=== PATIENT | female | born 1965 | race Caucasian/White ===

== ENCOUNTER 2024-02-02 08:22 | Inpatient (IN) | payer OTHER, SELFPAY ==
[2024-02-01 11:04] VITALS: BP 114/92
[2024-02-01 11:25] LABS: % Basophils 0.4 % (0-2); % Eosinophils 1.8 % (0-6); % Immature Granulocytes 0.3 % (0-0.5); % Lymphocytes 9.1 % (20.5-51.1); % Monocytes 5.2 % (1.7-9.3); % Neutrophils 83.2 % (42.2-75.2); Absolute Eosinophils 0.2 10^3/uL (0-0.7); Absolute Monocytes 0.5 10^3/uL (0.1-0.6); Absolute Neutrophils 8.6 10^3/uL (1.4-6.5); Hematocrit 35.8 % (37.0-47.0); Hemoglobin 12.4 g/dL (12.0-16.0); Mean Corp Hgb Conc. 34.6 g/dL (33.0-37.0); Mean Corpuscular Hgb 28.6 pg (27.0-31.0); Mean Corpuscular Volume 82.5 fL (81.0-99.0); Mean Platelet Volume 9.2 fL (7.4-10.4); Nucleated Red Blood Cells % 0 %; Platelet Count 184 10^3/uL (130-400); Red Blood Cell Count 4.34 10^6/uL (4.20-5.40); Red Cell Dist. Width 12.1 % (11.5-14.5); White Blood Cell Count 10.4 10^3/uL (4.8-10.8)
[2024-02-01 11:41] LABS: Lactic Acid 0.7 mmol/L (0.7-2.0)
[2024-02-01 11:49] LABS: ALT (SGPT) 46 U/L (0-35); AST (SGOT) 52 U/L (14-36); Albumin 4.1 g/dl (3.5-5.0); Alkaline Phosphatase 72 U/L (38-126); Blood Urea Nitrogen 9 mg/dl (7-17); Calcium 9.2 mg/dl (8.4-10.2); Carbon Dioxide 23 mmol/L (22-30); Chloride 96 mmol/L (98-107); Glucose 66 mg/dl (70-99); Lipase 1587 U/L (23-300); Potassium 3.9 mmol/L (3.5-5.1); Sodium 129 mmol/L (135-145); Total Bilirubin 0.3 mg/dl (0.2-1.3); Total Protein 6.9 g/dl (6.3-8.2); eGFR > 60.00
[2024-02-01 13:32] LABS: Urine Albumin Negative (Neg - Trace); Urine Bilirubin Negative (Negative); Urine Character Clear (Clear); Urine Color Yellow; Urine Glucose Negative (Negative); Urine Ketone 3+ (Negative); Urine Leukocyte Trace (Negative); Urine Nitrite Negative (Negative); Urine Occult Blood Trace (Negative); Urine Urobilinogen Negative (Neg - 1+); Urine pH 6.5 (5.0-9.0)
[2024-02-01 13:42] LABS: Urine Squamous Cell 0-2 /LPF (Few)
--- NOTE | 2024-02-01 14:12 | ED.GENMED ---
History of Present Illness
General
Chief Complaint: Abdominal Symptoms
Source: patient and spouse
Exam Limitations: none
Time Seen by Provider: 02/01/24 13:52
Nursing documentation reviewed up to this point in time: agreed with
Travel History
Have you had any contact with someone who has COVID-19?: No
Do you have any symptoms of coronavirus? Fever > 100 degrees, chills, cough, shortness of breath, sore throat, loss of taste or smell, muscle aches, or headache?: No
History of Present Illness
History of Present Illness:
58 yo female presents with abdominal bloating pain, low back pain, fever, past 2 days. Had 'debilitating headache' 2 days ago and this has resolved after taking a friend's Ubrelvy. She's had difficulty urinating 'only trickles,' no dysuria. Fever
max 101.7 yesterday.
Went to UC 2 days ago and told she had UTI and given Cipro, took one dose and stopped after reading poss side effects. Got final urine culture results today that were negative.
Had no good BM since breast surgery on 01/20 but finally had good BM yesterday
Hx breast CA finished chemo 2013, had rupture breast implant removed and replaced 11 days ago at [facility]. Finished 10 days of Bactrim yesterday.
Past History
Past History
ED Past Medical History: Cancer (breast CA) and Other (Sjogren's syndrome, Rheumatoid arthritis)
ED Past Surgical History: and Gynecological (bilateral mastectomies, bilateral breast implants, left breast implant rupture with replacement on 01/21/24)
Social History
Tobacco: Non-smoker
Alcohol: None
Personal:
Living: with family
Review of Systems
Review of Systems
Allergies reviewed?: Yes
All Other Systems: ROS reviewed and negative except as documented in HPI and ROS
Constitutional: Reports fever
Respiratory: Denies trouble breathing
Cardiac: Denies chest pain
ABD/GI: Reports abdominal pain, constipated and anorexia; Denies nausea, vomiting, diarrhea, bloody stools or black stools
: Reports frequency and difficulty voiding; Denies dysuria or urgency
Musculoskeletal: Reports back pain (w back pain)
Skin: Reports no symptoms
Neurological: Reports no symptoms
Phy Exam
Physical Exam
Physical Exam:
GENERAL: No acute distress. A&Ox3.
CONSTITUTIONAL: Afebrile.
EYES: PERRL, conjunctivae normal
Neck: Supple
ENMT: moist mucus membranes, Pharynx nl
RESPIRATORY: Regular respirations, nonlabored, lungs clear.
CARDIOVASCULAR: Regular rate and rhythm, no murmurs, no rubs.
GI: Soft, generally mildly tender, no guarding or rebound, normal BS
MUSCULOSKELETAL: Moves with ease. Well perfused.
SKIN: Warm, dry, pink
PSYCH: Normal mood and affect. Well kept, interactive and appropriate
NEUROLOGIC: Awake, alert and oriented. No focal neurological deficits
Course
Orders/Labs/Results
Orders:
Orders
02/01/24 11:16
Complete Blood Count/With Diff Urgent
Comprehensive Metabolic Panel Urgent
Lactic Acid Urgent
Comment: ON ICE, CANCEL 2ND ORDER IF FIRST LACTIC ACID LEVEL <2
Lipase Urgent
02/01/24 13:19
Urinalysis Reflex To Culture Urgent
Date Specimen was Collected: 02/01/24
Time Specimen was Collected: 13:15
Urine Microscopic Reflex Cult Urgent
02/01/24 14:12
CT Abd/pel W Iv And Oral Contr Urgent
Comment:
Reason For Exam: bleating, pain, elevated Lipase
Iohexol [Omnipaque] See Protocol PO NOW STA
02/01/24 14:53
0.9% Sodium Chloride 1000 ml [Nss] 1,000 ml IV BOLUS
02/01/24 18:07
Ketorolac [Toradol] 15 mg .ROUTE .STK-MED ONE
02/01/24 18:09
Ketorolac [Toradol] 15 mg IV NOW STA
Abnormal Lab Results
02/01/24 02/01/24
11:16 13:19
Hct 35.8 L %
(37.0-47.0)
Absolute Neuts (auto) 8.6 H 10^3/uL
(1.4-6.5)
Absolute Lymphs (auto) 1.0 L 10^3/uL
(1.2-3.4)
Neutrophils % 83.2 H %
(42.2-75.2)
Lymphocytes % 9.1 L %
(20.5-51.1)
Sodium 129 L mmol/L
(135-145)
Chloride 96 L mmol/L
(98-107)
Creatinine 0.5 L mg/dL
(0.6-1.0)
Glucose 66 L mg/dl
(70-99)
AST 52 H U/L
(14-36)
ALT 46 H U/L
(0-35)
Lipase 1587 H* U/L
(23-300)
Urine Ketones 3+ A
(Negative)
Ur Occult Blood Reflex Trace A
(Negative)
Leukocyte Esterase Rfl Trace A
(Negative)
Urine RBC 3-6 A /HPF
(0-2)
02/01/24 11:16
02/01/24 11:16
Vital Signs
Initial and Last Documented VS:
Initial Vital Signs
Temp Pulse Resp BP Pulse Ox
97.7 F 94 18 114/92 99
02/01/24 11:04 02/01/24 11:04 02/01/24 11:04 02/01/24 11:04 02/01/24 11:04
Last Documented Vital Signs
Temp Pulse Resp BP Pulse Ox
98.6 F 106 17 132/73 95
02/01/24 18:02 02/01/24 18:02 02/01/24 14:48 02/01/24 18:02 02/01/24 18:02
MDM/Problems Addressed
Differential Diagnosis Includes:
Cholelithiasis, choledocholithiasis, pancreatitis, metastatic CA
MDM/Problems Addressed:
58 yo female presents with abdominal bloating pain, low back pain, fever, past 2 days. Had 'debilitating headache' 2 days ago and this has resolved after taking a friend's Ubrelvy. She's had difficulty urinating 'only trickles,' no dysuria. Fever
max 101.7 yesterday.
Went to UC 2 days ago and told she had UTI and given Cipro, took one dose and stopped after reading poss side effects. Got final urine culture results today that were negative.
Had no good BM since breast surgery on 01/20 but finally had good BM yesterday
Hx breast CA finished chemo 2013, had rupture breast implant removed and replaced 11 days ago at [facility]. Finished 10 days of Bactrim yesterday.
3:10 PM
CBC: Normal
CMP: Sodium 129, mild elevation AST/ALT, lipase elevated at 1587.
UA: No sign of infection
6:[address] abdomen pelvis with p.o. and IV contrast radiology report read:
IMPRESSION:
1. Probable under distention of a short segment of terminal ileum, versus mild focal terminal ileitis.
2. Otherwise no significant acute abnormality identified in the abdomen or pelvis, as described above.
Plan: Admit: Pancreatitis, possible mild terminal ileitis
Hospitalist notified of admission
Chronic conditions affecting care: Cancer
*Critical Care Note
Total Time (30-74mins, 75-104mins- exclusive of procedures): Not Applicable
ED Attending Note
-
Portions of this chart may have been created with voice recognition software.� Occasional wrong word or��sound alike� substitutions may have occurred due to the inherent limitations of voice recognition software.
Discharge Plan
Departure
Patient Disposition: Admit
Date of Disposition: 02/01/24
Time of Disposition: 18:49
Admit to: Med/Surg
Presentation/result/management discussed w/ accepting MD/DO: Hospitalist
Condition: Good
Discharge Problem:
Acute pancreatitis
Prescriptions:
No Action
acetaminophen [Tylenol] 325 mg Tablet
650 mg PO Q6HPRN PRN (Reason: mild pain)
alendronate [Fosamax] 70 mg Tablet
70 mg PO WINTER
calcium carbonate [Calcium 500] 500 mg calcium (1,250 mg) Tablet
500 mg PO DAILY
diazepam [Valium] 2 mg Tablet
2 mg PO DAILYPRN PRN (Reason: anxiety)
docusate sodium [Colace] 100 mg Capsule
100 mg PO BIDPRN PRN (Reason: constipation from surgery)
hydroxychloroquine [Plaquenil] 200 mg Tablet
200 mg PO WESA
zolpidem [Ambien] 10 mg Tablet
10 mg PO HSPRN PRN (Reason: sleep)
oxycodone 5 mg Tablet
5 mg PO BIDPRN PRN (Reason: severe pain)
Referrals:
Chau Hall DO [Family Provider] -
Interventions
Interventions:
*Risk Screen - Suicide Last Done: 02/01/24 11:04
*General Assessment Last Done: 02/01/24 11:04
*Neglect/Abuse Screening Last Done: 02/01/24 11:04
*ED COVID-19 Vaccine History Last Done: 02/01/24 14:50
IW-Lxuzne-Kirugvwrvw Assessment Last Done: 02/01/24 16:50
Discharge Date and Time
Print Language: GHANAIAN
[2024-02-01] MEDS: OMNIPAQUE 50 ML PO (14:30)
[2024-02-01 14:48] VITALS: BP 123/86; BMI 18.2
[2024-02-01] MEDS: NSS 1000 IV (16:05)
[2024-02-01 16:06] VITALS: BP 125/80
[2024-02-01 18:02] VITALS: BP 132/73
[2024-02-01 18:04] VITALS: BP 132/73
[2024-02-01] MEDS: TORADOL 15 MG IV (18:09)
--- NOTE | 2024-02-01 19:00 | HPS.HSE ---
Family Physician
-
Family Physician: Chau Hall
Chief Complaint
-
Abdominal pain, fever at home
History of Present Illness
HPI: 58 yo female PMH breast Ca s/p bilateral mastectomies, bilateral breast implants, left breast implant rupture with recent replacement on 01/21/24, Sjogren's syndrome, Rheumatoid arthritis; p/w abdominal bloating and mid abd pain. She also had
fever 2 days ago with migraine which has now resolved after taking a friend's Ubrelvy.
She was seen at the urgent care due to urinary frequency but denied to dysuria. She was given Cipro, took 1 dose and stopped after reading the possible side effect. Her urine culture came back negative.
Due to her recent breast implant surgery, she has had constipation which has gotten better. She had also been on Bactrim postop for prophylaxis.
Denies to other symptoms such as chest pain/shortness of breath etc.
Medical History
Past Medical History
Past Medical History: Reports Other
Additional Past Medical History:
breast Ca s/p bilateral mastectomies
bilateral breast implants
left breast implant rupture with recent replacement on 01/21/24
Sjogren's syndrome
Rheumatoid arthritis
Past Surgical History: Reports Other
Additional Past Surgical History:
See above
Social History
Tobacco: Non-smoker
Alcohol: Occasional
Living: With Family
Family History
Family History: Not pertinent
Allergies / Home Medications
Allergies reflects when Allergies were last updated in [facility].
Home Medications with original date entered in [facility]
Allergy/Medication List:
Allergies
Allergy/AdvReac Type Severity Reaction Status Date / Time
cefazolin [From [facility] Allergy Swelling Verified 02/01/24 11:12
Home Medications
acetaminophen 325 mg tablet (Tylenol) 650 mg PO Q6HPRN PRN mild pain 02/01/24
alendronate 70 mg tablet (Fosamax) 70 mg PO WINTER 02/01/24
calcium carbonate 500 mg PO DAILY 02/01/24
diazepam 2 mg tablet (Valium) 2 mg PO DAILYPRN PRN anxiety 02/01/24
docusate sodium 100 mg capsule (Colace) 100 mg PO BIDPRN PRN constipation from surgery 02/01/24
hydroxychloroquine 200 mg tablet (Plaquenil) 200 mg PO WESA 02/01/24
oxycodone 5 mg tablet 5 mg PO BIDPRN PRN severe pain 02/01/24
zolpidem 10 mg tablet (Ambien) 10 mg PO HSPRN PRN sleep 02/01/24
Review of Systems
-
Abdomen/GI: Reports See HPI and Abdominal Pain
: Reports See HPI; Denies Dysuria or Frequency
Physical Exam
Vital Signs
Vital Signs
Temp Pulse Resp BP Pulse Ox
37.0 C 106 17 132/73 95
02/01/24 18:02 02/01/24 18:02 02/01/24 14:48 02/01/24 18:02 02/01/24 18:02
Physical Exam
General: Well Developed, Well Nourished, No Apparent Distress, Comfortable and Conversant
HEENT: NormoCephalic, Moist mucous membranes and Atraumatic
Respiratory: Clear and Non Labored Respirations; No Accessory Resp Muscle Use
Cardiac: S1/S2 and Regular Rhythm; No Murmur or Rub
GI: Soft, Non Distended, Normal Bowel Sounds and Tender (Mid abdomen, mild tenderness); No Organomegaly
Rectal: Deferred by Provider
Musculoskeletal: No Clubbing, No Cyanosis and No Edema
Skin: No Rash
Neuro: Awake, AO x 3 and Nonfocal/grossly intact
Psych: Calm and Intact Judgment/Insight
Laboratory Results
-
02/01/24 11:16
02/01/24 11:16
Laboratory Results
Lactic Acid 0.7 mmol/L (0.7-2.0) 02/01/24 11:16
Total Bilirubin 0.3 mg/dl (0.2-1.3) 02/01/24 11:16
AST 52 U/L (14-36) H 02/01/24 11:16
ALT 46 U/L (0-35) H 02/01/24 11:16
Alkaline Phosphatase 72 U/L (38-126) 02/01/24 11:16
Lipase 1587 U/L (23-300) H* 02/01/24 11:16
Data Reviewed
-
CT Scan: Image Personally Visualized and interpreted, Report Reviewed by me, Discussed with Physician (Radiologist) and Discussed with Patient
Lab Data: Labs Reviewed by me and Discussed with Patient
Impression/Plan
-
HPI: 58 yo female PMH breast Ca s/p bilateral mastectomies, bilateral breast implants, left breast implant rupture with recent replacement on 01/21/24, Sjogren's syndrome, Rheumatoid arthritis; p/w abdominal bloating and mid abd pain. She also had
fever 2 days ago with migraine which has now resolved after taking a friend's Ubrelvy.
She was seen at the urgent care due to urinary frequency but denied to dysuria. She was given Cipro, took 1 dose and stopped after reading the possible side effect. Her urine culture came back negative.
Due to her recent breast implant surgery, she has had constipation which has gotten better. She had also been on Bactrim postop for prophylaxis.
Denies to other symptoms such as chest pain/shortness of breath etc.
CT AP:
1. Probable under distention of a short segment of terminal ileum, versus mild focal terminal ileitis.
2. Otherwise no significant acute abnormality identified in the abdomen or pelvis, as described above.
A/P:
# Mid Abd pain
# Elevated LFT
# Elevated lipase level
CT AP noted mild focal terminal ileitis. Discussed with radiologist, pancreas appears WNL
given elevated lipase level, would treat as mild pancreatitis. Keep NPO and support with IVF with RL 100 cc/hr
GI CS for terminal ileitis eval, ?IBD related to existing autoimmune diseases
# breast Ca s/p bilateral mastectomies
# bilateral breast implants
# left breast implant rupture with recent replacement on 01/21/24
# Sjogren's syndrome
# Rheumatoid arthritis
DVT ppx: Lovenox SQ
FC
[2024-02-01] MEDS: LR 1000 IV (22:36)
[2024-02-01] MEDS: AMBIEN 10 MG PO (23:13)
[2024-02-01 23:30] VITALS: BP 110/60
[2024-02-01] MEDS: TYLENOL 650 MG PO (23:39)
--- NOTE | 2024-02-02 07:06 | CON.GI ---
Addendum entered and electronically signed by Danay Iyer MD 02/02/24 13:53:
I saw and examined the patient.
The BUSINESS DEVELOPMENT COORDINATOR or PA's note was reviewed and I agree with the note.
Comment: 58-year-old female with history of breast cancer status post bilateral mastectomies, breast implants with recent rupture and replacement January 21, 2024, postop constipation in spite of taking some Colace and now coming in with some fevers,
abdominal bloating and frequent urination. She reports discomfort in the upper abdomen, no nausea, vomiting, heartburn or trouble swallowing. Prior to admission, she reports that she may have some occasional constipation but nothing on a regular
basis. Lately she has a bowel movement every few days but mostly pellet-like stool with incomplete evacuation. No blood or black stool. In the emergency room, she was also noted to have elevated lipase with mildly elevated transaminases, CT scan
did not show any evidence of pancreatitis but focal thickening of the terminal ileum noted.
She reports having colonoscopy 3 years ago at [facility]-Dr. Moris Perera, no polyps noted. Mother with history of colon cancer and sister with polyps. No family history of inflammatory bowel disease.
On imaging, large urinary bladder noted as well.
-Abdominal bloating, evidence of focal thickening of the terminal ileum
Also history of constipation.
Currently off narcotics
Likely cause of abdominal bloating is constipation, unclear regarding focal thickening of the terminal ileum
Will treat constipation with bowel regimen with MiraLAX and Senokot.
Clear liquid diet and advance as tolerated.
Once constipation is better, she will need a bowel regimen for when she goes home.
She should follow-up with her outpatient GI doctor in [facility] for possible outpatient colonoscopy
to evaluate terminal ileum
-Urinary retention on CAT scan
Further management per medical team
Will monitor LFTs-.
Original Note:
Consultation
-
Date/Time Consultation Requested: 02/01/24 4720
Date/Time Consultation Performed: 02/02/24 4609
Requesting Provider: Ayla Mckeon MD
Performing Provider: YESI Bello, Danay Iyer MD
Reason for Consultation: elevated lipase
Medical History
Chief Complaint / HPI
Chief Complaint: abdominal pain
History of Present Illness:
Pt is a a 58 yo with hx breast Ca s/p bilateral mastectomies, bilateral breast implants with recent left breast implant rupture in June then replacement on 01/21/24, Sjogren's syndrome, Rheumatoid arthritis present to ER with abdominal pain and
bloating. She states she had breast implant replacement 01/20. Post op had some nerve discomfort requiring pain meds (now off) and post-op abx. She had increased bloating, constipation, and also report difficulty with urination. She was taking
colace then benefiber and had follow with urgent care/PCP visit initially with possible UTI and abx use. She had eventual BM but still several days til next BM with very small stool between. He appetite was down and she developed severe headache
took a friend Ubrelvy. She also reports fever. IN ER noted with Na 129, bili 0.3, AST 52, ALT 46, alk phos 72 and lipase 1587. WBC 10,400, hbg 12.4. She was also noted with FBS 66 then [address] on admission with under distention
of a short segment of terminal ileum, versus mild focal terminal ileitis and normal pancreas.
At this time patient admits to dysphagia with pill chronically. She has had nausea and decreased appetite with constipation and bloating. She denies abdominal pain, diarrhea or rectal bleeding. hx prior colonoscopy recalls as normal with
family hx colon Ca in mother and polyps in sister.
Past Medical History
Past Medical History: Cancer (breast CA) and Other (sjogren's syndrome, RA)
Past Surgical History: and Gynecological (b/l mastectomy, b/l breast implants with left breast implant rupture and replacement 01/21/24 )
Social History
Tobacco: Non-Smoker
Alcohol: None
Drug: None
Personal:
Living: With Family
Employment: Employed
Family History
Family History: Other (mother with colon CA, sister with polyps)
Allergies / Home Medications
Allergy/AdvReac Type Severity Reaction Status Date / Time
cefazolin [From [facility]] Allergy Swelling Verified 02/01/24 11:12
�Medication �Instructions �Recorded
acetaminophen 325 mg tablet 650 mg PO Q6HPRN PRN mild pain 02/01/24
(Tylenol)
alendronate 70 mg tablet (Fosamax) 70 mg PO WINTER 02/01/24
calcium carbonate 500 mg PO DAILY 02/01/24
diazepam 2 mg tablet (Valium) 2 mg PO DAILYPRN PRN anxiety 02/01/24
docusate sodium 100 mg capsule 100 mg PO BIDPRN PRN constipation 02/01/24
(Colace) from surgery
hydroxychloroquine 200 mg tablet 200 mg PO WESA 02/01/24
(Plaquenil)
oxycodone 5 mg tablet 5 mg PO BIDPRN PRN severe pain 02/01/24
zolpidem 10 mg tablet (Ambien) 10 mg PO HSPRN PRN sleep 02/01/24
Review of Systems
-
History Source: Patient
Constitutional: Reports Fever and Weight Loss (7 lbs last 2 weeks)
EENT: Reports No Symptoms
Respiratory: Reports No Symptoms
Cardiac: Reports No Symptoms
Abdomen/GI: Reports Nausea, Constipated and Other (bloating)
: Reports Difficulty Voiding
Musculoskeletal: Reports No Symptoms
Neurological: Reports Weakness
Endocrine: Reports No Symptoms
Hematologic/Lymphatic: Reports No Symptoms
Vital Signs
Temp Pulse Resp BP Pulse Ox
98.7 F 72 16 110/60 98
02/01/24 23:30 02/01/24 23:30 02/01/24 23:30 02/01/24 23:30 02/01/24 23:30
Physical Exam
Exam
General: Well Developed, Well Nourished and No Apparent Distress
HEENT: Normocephalic and Anicteric
Respiratory: Clear
Cardiac: Regular Rhythm
GI: Soft, Non Tender and Distended (mild)
Musculoskeletal: No Clubbing and No Cyanosis
Skin: Warm and Dry
Neuro: Awake, Alert and AO x 3
Psych: Calm
Results
WBC 10.4 10^3/uL (4.8-10.8) 02/01/24 11:16
Hgb 12.4 g/dL (12.0-16.0) 02/01/24 11:16
Hct 35.8 % (37.0-47.0) L 02/01/24 11:16
MCV 82.5 fL (81.0-99.0) 02/01/24 11:16
Plt Count 184 10^3/uL (130-400) 02/01/24 11:16
Absolute Neuts (auto) 8.6 10^3/uL (1.4-6.5) H 02/01/24 11:16
Sodium 129 mmol/L (135-145) L 02/01/24 11:16
Potassium 3.9 mmol/L (3.5-5.1) 02/01/24 11:16
Chloride 96 mmol/L (98-107) L 02/01/24 11:16
Carbon Dioxide 23 mmol/L (22-30) 02/01/24 11:16
BUN 9 mg/dl (7-17) 02/01/24 11:16
Creatinine 0.5 mg/dL (0.6-1.0) L 02/01/24 11:16
Calcium 9.2 mg/dl (8.4-10.2) 02/01/24 11:16
Total Bilirubin 0.3 mg/dl (0.2-1.3) 02/01/24 11:16
AST 52 U/L (14-36) H 02/01/24 11:16
ALT 46 U/L (0-35) H 02/01/24 11:16
Alkaline Phosphatase 72 U/L (38-126) 02/01/24 11:16
Lipase 1587 U/L (23-300) H* 02/01/24 11:16
Diagnostic Image Results:
02/01/24 CT Abd/pel W Iv And Oral Contr
1. Probable under distention of a short segment of terminal ileum, versus mild focal terminal ileitis.
2. Otherwise no significant acute abnormality identified in the abdomen or pelvis, as described above.
Prior GI Procedures:
EGD: none
Colonoscopy: recall as normal
Assessment / Plan
-
Pt is a a 58 yo with hx breast Ca s/p bilateral mastectomies, bilateral breast implants with recent left breast implant rupture in June then replacement on 01/21/24, Sjogren's syndrome, Rheumatoid arthritis present to ER with abdominal pain and
bloating. She states she had breast implant replacement 01/20. Post op had some nerve discomfort requiring pain meds (now off) and post-op abx. She had increased bloating, constipation, and also report difficulty with urination. She was taking
colace then benefiber and had follow with urgent care/PCP visit initially with possible UTI and abx use. She had eventual BM but still several days til next BM with very small stool between. He appetite was down and she developed severe headache
took a friend Ubrelvy. She also reports fever. IN ER noted with Na 129, bili 0.3, AST 52, ALT 46, alk phos 72 and lipase 1587. WBC 10,400, hbg 12.4. She was also noted with FBS 66 then [address] on admission with under distention
of a short segment of terminal ileum, versus mild focal terminal ileitis and normal pancreas.
-nausea/ bloating
-fever prior to admission
-recent breast implant replacement 01/20
-elevated lipase no true pancreatitis with no abdominal pain and normal pancreas on CT
-mild LFT elevation on admission
-difficulty urination
-post-op constipation
-CT with underdistention of TI vs mild focal ileitis
-hypoglycemia
other medical problems:
-breast CA s/p b/l mastectomy with breast implants
-recent breast implant rupture with replacement
-sjogren's
-family hx colon CA
PLAN:
Etiology of symptoms related to bladder distention/ileus/constipation post -op with some distention on CT, TI inflammation vs other
less likely true pancreatitis with more bloating than pain and normal pancreas on imaging
recheck lipase this am
check bladder scan/st cath if greater than 400ml and management per hospitalist-- reviewed with Dr. Leblanc
monitor for recurrent fever
add bowel regiment with miralax and senna
ok for clear diet
blood cx pending-- if further fever add CXR
treatment of hypoglycemia per hospitalist
will follow
-
-
-
Thank you for consultation and allowing me to participate in the patient's care. Please call the rehabilitation program manager GI physician during the after hours with any questions or concerns.
[2024-02-02 07:51] VITALS: BP 103/65
[2024-02-02 08:26] LABS: % Basophils 0.4 % (0-2); % Eosinophils 1.9 % (0-6); % Immature Granulocytes 0.2 % (0-0.5); % Lymphocytes 11.8 % (20.5-51.1); % Neutrophils 77.7 % (42.2-75.2); Absolute Eosinophils 0.2 10^3/uL (0-0.7); Absolute Monocytes 0.7 10^3/uL (0.1-0.6); Absolute Neutrophils 6.5 10^3/uL (1.4-6.5); Hematocrit 31.8 % (37.0-47.0); Hemoglobin 11.3 g/dL (12.0-16.0); Mean Corp Hgb Conc. 35.5 g/dL (33.0-37.0); Mean Corpuscular Hgb 28.8 pg (27.0-31.0); Mean Corpuscular Volume 81.1 fL (81.0-99.0); Nucleated Red Blood Cells % 0 %; Platelet Count 194 10^3/uL (130-400); Red Blood Cell Count 3.92 10^6/uL (4.20-5.40); Red Cell Dist. Width 12.5 % (11.5-14.5); White Blood Cell Count 8.3 10^3/uL (4.8-10.8)
--- NOTE | 2024-02-02 08:27 | W.PN.HOSP.TC ---
Today's Communication/Plan
-
Continue IV fluids and treat as pancreatitis for now
Await GI input and plans for further workup of ileitis seen on CT
Try to avoid narcotic analgesia
Monitor hyponatremia await today's chemistries
Will change to inpatient status
Assessment / Plan
Assessment / Plan
58 yo female PMH breast Ca s/p bilateral mastectomies, bilateral breast implants, left breast implant rupture with recent replacement on 01/21/24, Sjogren's syndrome, Rheumatoid arthritis; p/w abdominal bloating and mid abd pain. She also had fever 2
days ago with migraine which has now resolved after taking a friend's Ubrelvy.
She was seen at the urgent care due to urinary frequency but denied to dysuria. She was given Cipro, took 1 dose and stopped after reading the possible side effect. Her urine culture came back negative.
Due to her recent breast implant surgery, she has had constipation which has gotten better. She had also been on Bactrim postop for prophylaxis.
Denies to other symptoms such as chest pain/shortness of breath etc.
CT AP:
1. Probable under distention of a short segment of terminal ileum, versus mild focal terminal ileitis.
2. Otherwise no significant acute abnormality identified in the abdomen or pelvis, as described above.
A/P:
# Mid Abd pain
# Elevated LFT
# Elevated lipase level
CT AP noted mild focal terminal ileitis. Discussed with radiologist, pancreas appears WNL
given elevated lipase level, would treat as mild pancreatitis. Keep NPO and support with IVF with RL 100 cc/hr
GI CS for terminal ileitis eval, ?IBD related to existing autoimmune diseases
# breast Ca s/p bilateral mastectomies
# bilateral breast implants
# left breast implant rupture with recent replacement on 01/21/24
# Sjogren's syndrome
# Rheumatoid arthritis
DVT ppx: Lovenox SQ
FC
Anticipated Discharge: Within 24 hours
Subjective/Interval History
-
Date of Service: February 02, 2024
Just describing some bloating not much abdominal pain no passage of flatus last bowel 2 days ago
Objective Data
-
Labs:
Laboratory Results
02/02/24
08:09
WBC 8.3
Hgb 11.3 L
Hct 31.8 L
Plt Count 194
Sodium Pending
Potassium Pending
Chloride Pending
Carbon Dioxide Pending
BUN Pending
Creatinine Pending
Glucose Pending
Calcium Pending
Total Bilirubin Pending
AST Pending
ALT Pending
Alkaline Phosphatase Pending
Vital Signs:
Vital Signs
Temp Pulse Resp BP Pulse Ox
98.2 F 77 20 103/65 98
02/02/24 07:51 02/02/24 07:51 02/02/24 07:51 02/02/24 07:51 02/02/24 07:51
I&O
02/01/24 02/02/24 02/03/24
06:59 06:59 06:59
Intake Total 1040 / 1040
Balance 1040 / 1040
Review of Systems
-
History Source: Patient
All other systems: Reviewed and negative
Constitutional: Reports No Symptoms
Respiratory: Reports No Symptoms
Cardiac: Reports No Symptoms
Abdomen/GI: Reports Abdominal Pain
Physical Exam
-
General: Cachectic (Looks underweight)
HEENT: PERRLA
GI: Soft, Tender (Mildly tender) and Distended
Musculoskeletal: No Clubbing
Skin: Warm
Psych: Calm
Data Reviewed
-
Total Time Spent with Patient (in minutes): 45
Labs: Labs Reviewed by me (Today's labs pending lipase was 1500 earlier/sodium 129 blood sugar slightly present 66)
[2024-02-02 09:06] LABS: ALT (SGPT) 33 U/L (0-35); AST (SGOT) 41 U/L (14-36); Albumin 3.6 g/dl (3.5-5.0); Alkaline Phosphatase 69 U/L (38-126); Blood Urea Nitrogen 10 mg/dl (7-17); Calcium 8.8 mg/dl (8.4-10.2); Carbon Dioxide 19 mmol/L (22-30); Chloride 102 mmol/L (98-107); Estimated Creatinine Clearance 82 ml/min; Glucose 39 mg/dl (70-99); Magnesium 2.2 mg/dl (1.6-2.3); Potassium 3.7 mmol/L (3.5-5.1); Sodium 134 mmol/L (135-145); Total Bilirubin 0.5 mg/dl (0.2-1.3); Total Protein 6.2 g/dl (6.3-8.2); eGFR > 60.00
[2024-02-02] MEDS: DEXTROSE 50% SYRINGE 12.5 GRAMS IV (09:10)
[2024-02-02] MEDS: D5/0.9% SODIUM CHLORIDE 1000 IV ×2 (09:16→19:25)
[2024-02-02] MEDS: LR IV (09:19)
[2024-02-02 09:33] LABS: Glucose - Point of Care 86 mg/dl (70-99)
--- NOTE | 2024-02-02 09:52 | PTCARENOTE ---
Glucose low (39) on morning CMP - pt asymptomatic. Hospitalist made aware. Given D50 bolus and IVF changed to D5/NSS.
[2024-02-02 10:59] LABS: Lipase 1480 U/L (23-300)
[2024-02-02] MEDS: MIRALAX 17 GRAMS PO (11:05)
[2024-02-02] MEDS: SENOKOT 17.1999999999999993 MG PO (11:05)
[2024-02-02] MEDS: TYLENOL 650 MG PO ×2 (11:08→19:38)
[2024-02-02 13:35] VITALS: BP 107/73
[2024-02-02 16:10] VITALS: BMI 18.2
[2024-02-02 16:26] LABS: Glucose - Point of Care 82 mg/dl (70-99)
[2024-02-02 16:59] VITALS: BP 119/78
[2024-02-02 17:01] VITALS: BMI 17.3
--- NOTE | 2024-02-02 17:30 | PTCARENOTE ---
Rec'd pt from ED, oriented to room and unit. Pt iv infusing to right ac without issue. Pt is alert and oriented x's 3. Heart is regular, lungs are clear. Pt has an incision under her left breast, approximated, closed with surgical glue. Pt with
positive bowel sounds. Continent of bowel and bladder. Denies pain. No edema noted. Instructed to ring for assistance. Pt verbalized understanding. will cont to monitor.
[2024-02-02] MEDS: LOVENOX 30 MG SC (18:37)
[2024-02-02] MEDS: SENOKOT PO (19:34)
[2024-02-02] MEDS: PLAQUENIL 200 MG PO (21:42)
[2024-02-02] MEDS: AMBIEN 10 MG PO (21:46)
[2024-02-02] MEDS: VALIUM 2 MG PO (21:46)
[2024-02-02 23:32] VITALS: BP 119/78
[2024-02-03] MEDS: D5/0.9% SODIUM CHLORIDE 1000 IV ×2 (04:39→13:51)
[2024-02-03 06:35] LABS: Hematocrit 28.1 % (37.0-47.0); Hemoglobin 9.9 g/dL (12.0-16.0); Mean Corp Hgb Conc. 35.2 g/dL (33.0-37.0); Mean Corpuscular Hgb 28.9 pg (27.0-31.0); Mean Corpuscular Volume 81.9 fL (81.0-99.0); Mean Platelet Volume 9.5 fL (7.4-10.4); Platelet Count 194 10^3/uL (130-400); Red Blood Cell Count 3.43 10^6/uL (4.20-5.40); Red Cell Dist. Width 12.3 % (11.5-14.5); White Blood Cell Count 3.7 10^3/uL (4.8-10.8)
[2024-02-03 07:00] VITALS: BP 159/94
[2024-02-03 07:18] LABS: ALT (SGPT) 83 U/L (0-35); AST (SGOT) 113 U/L (14-36); Alkaline Phosphatase 75 U/L (38-126); Blood Urea Nitrogen 4 mg/dl (7-17); Calcium 7.9 mg/dl (8.4-10.2); Carbon Dioxide 22 mmol/L (22-30); Chloride 108 mmol/L (98-107); Estimated Creatinine Clearance 78 ml/min; Glucose 94 mg/dl (70-99); Lipase 1574 U/L (23-300); Potassium 3.6 mmol/L (3.5-5.1); Sodium 137 mmol/L (135-145); Total Bilirubin 0.4 mg/dl (0.2-1.3); Total Protein 5.5 g/dl (6.3-8.2); eGFR > 60.00
[2024-02-03] MEDS: MIRALAX PO (09:29)
[2024-02-03] MEDS: SENOKOT PO (09:29)
[2024-02-03] MEDS: TYLENOL 650 MG PO (11:32)
[2024-02-03 14:10] LABS: Glucose - Point of Care 109 mg/dl (70-99)
--- NOTE | 2024-02-03 14:35 | W.PN.HOSP.TC ---
Today's Communication/Plan
-
Advance diet as tolerated and possible discharge tomorrow
Assessment / Plan
Assessment / Plan
58 yo female [facility] breast Ca s/p bilateral mastectomies, bilateral breast implants, left breast implant rupture with recent replacement on 01/21/24, Sjogren's syndrome, Rheumatoid arthritis; p/w abdominal bloating and mid abd pain. She also had fever 2
days ago with migraine which has now resolved after taking a friend's Ubrelvy.
She was seen at the urgent care due to urinary frequency but denied to dysuria. She was given Cipro, took 1 dose and stopped after reading the possible side effect. Her urine culture came back negative.
Due to her recent breast implant surgery, she has had constipation which has gotten better. She had also been on Bactrim postop for prophylaxis.
Denies to other symptoms such as chest pain/shortness of breath etc.
CT AP:
1. Probable under distention of a short segment of terminal ileum, versus mild focal terminal ileitis.
2. Otherwise no significant acute abnormality identified in the abdomen or pelvis, as described above.
A/P:
Acute pancreatitis/constipation
Lipase is still elevated.
Constipation resolved.
Currently on clear liquid diet will advance as tolerated.
# breast Ca s/p bilateral mastectomies
# bilateral breast implants
# left breast implant rupture with recent replacement on 01/21/24
# Sjogren's syndrome
# Rheumatoid arthritis
DVT ppx: Lovenox SQ
FC
Anticipated Discharge: Within 24 hours
Subjective/Interval History
-
Date of Service: February 03, 2024
Patient seen and examined at bedside, denies any chest pain or shortness of breath, still with abdominal discomfort, no nausea, no vomiting, constipation resolved.
Objective Data
-
Labs:
Laboratory Results
02/03/24
05:24
WBC 3.7 L
Hgb 9.9 L
Hct 28.1 L
Plt Count 194
Sodium 137
Potassium 3.6
Chloride 108 H
Carbon Dioxide 22
BUN 4 L
Creatinine 0.3 L
Glucose 94
Calcium 7.9 L
Total Bilirubin 0.4
AST 113 H
ALT 83 H
Alkaline Phosphatase 75
Vital Signs:
Vital Signs
Temp Pulse Resp BP Pulse Ox
98.0 F 90 18 159/94 99
02/03/24 07:00 02/03/24 07:00 02/03/24 07:00 02/03/24 07:00 02/03/24 08:15
I&O
02/02/24 02/03/24 02/04/24
06:59 06:59 06:59
Intake Total 1040 / 1040 2230 / 2230
Balance 1040 / 1040 2230 / 2230
Physical Exam
-
General: Well Developed and No Apparent Distress
HEENT: Normocephalic, Atraumatic and Moist Mucous Membranes
Respiratory: Clear to Auscultation
Cardiac: Regular Rhythm and S1/S2; Negative Murmur, Rub or Gallop
GI: Soft, Nondistended, Normal Bowel Sounds and Tender; Negative Organomegaly
Rectal: Deferred by Provider
Musculoskeletal: No Clubbing, No Cyanosis and No Edema
Skin: Negative Rash
Neuro: Nonfocal/Grossly Intact
[2024-02-03 15:00] VITALS: BP 122/68
--- NOTE | 2024-02-03 16:10 | W.PN.GI.CBS2 ---
Addendum entered and electronically signed by Danay Iyer MD 02/03/24 19:04:
I saw and examined the patient.
The TIPPLE TENDER or PA's note was reviewed and I agree with the note.
Comment: Patient does report some discomfort of the abdomen in spite of moving her bowels. Mostly bloating like sensation.
CT scan of the abdomen and pelvis without any gallstones or ductal dilation. AST and ALT did trend up but lipase in normal range. No evidence of pancreatitis on CT scan.
Currently moving her bowels and tolerating diet.
Continue bowel regimen.
Will need follow-up LFTs in a week through PCPs office, also suggested getting an abdominal ultrasound in case abdominal bloating continues to rule out possible gallstones though not seen on CAT scan.
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 Grey for possible colonoscopy once patient recovers from surgery given CAT scan showing mild terminal ileum inflammation.
Original Note:
Today's Communication / Plan
-
Etiology of symptoms related to bladder distention/ileus/constipation post -op with some distention on CT, TI inflammation vs other
no true pancreatitis with more bloating than pain and normal pancreas on imaging and no stones with stable gallbladder
? lipase elevation related to some SB distention
clinically improved after BM and also urinating better
no further fever
reviewed with patient, family and hospitalist if tolerates some diet consider discharge later today
follow up with Dr. Grey known GI for lipase/LFT elevation elevation and mild SB focal thickening
OP follow up LFT's and lipase 1-2 weeks
if recurrent symptoms consider US abdomen with some LFTs and lipase elevation
add probiotics
cont bowel regiment
gluten free diet as she follow at home
blood cx neg for 24 hours
return to ER for any recurrent fever, pain, or problems
Assessment / Plan
-
Pt is a a 58 yo with hx breast Ca s/p bilateral mastectomies, bilateral breast implants with recent left breast implant rupture in June then replacement on 01/21/24, Sjogren's syndrome, Rheumatoid arthritis present to ER with abdominal pain and
bloating. She states she had breast implant replacement 01/20. Post op had some nerve discomfort requiring pain meds (now off) and post-op abx. She had increased bloating, constipation, and also report difficulty with urination. She was taking
colace then benefiber and had follow with urgent care/PCP visit initially with possible UTI and abx use. She had eventual BM but still several days til next BM with very small stool between. He appetite was down and she developed severe headache
took a friend Ubrelvy. She also reports fever. IN ER noted with Na 129, bili 0.3, AST 52, ALT 46, alk phos 72 and lipase 1587. WBC 10,400, hbg 12.4. She was also noted with FBS 66 then [address] on admission with under distention
of a short segment of terminal ileum, versus mild focal terminal ileitis and normal pancreas.
-nausea/ bloating
-fever prior to admission
-recent breast implant replacement 01/20
-elevated lipase no true pancreatitis with no abdominal pain and normal pancreas on CT
-mild LFT elevation
-difficulty urination-resolved
-post-op constipation -resolved
-CT with underdistention of TI vs mild focal ileitis
-hypoglycemia - resolved
other medical problems:
-breast CA s/p b/l mastectomy with breast implants
-recent breast implant rupture with replacement
-sjogren's
-family hx colon CA
PLAN:
Etiology of symptoms related to bladder distention/ileus/constipation post -op with some distention on CT, TI inflammation vs other
no true pancreatitis with more bloating than pain and normal pancreas on imaging and no stones with stable gallbladder
? lipase elevation related to some SB distention
clinically improved after BM and also urinating better
no further fever
reviewed with patient, family and hospitalist if tolerates some diet consider discharge later today
follow up with Dr. Grey known GI for lipase/LFT elevation elevation and mild SB focal thickening
OP follow up LFT's and lipase 1-2 weeks
if recurrent symptoms consider US abdomen with some LFTs and lipase elevation
add probiotics
cont bowel regiment
gluten free diet as she follow at home
blood cx neg for 24 hours
return to ER for any recurrent fever, pain, or problems
-
Subjective
Subjective
Date of Service: February 03, 2024
feeling better, asking for diet and discharge some bloating but less than yesterday had stool yesterday and today and urination improved
Objective
Data Reviewed
Laboratory Data:
Laboratory Results
02/03/24 05:24
02/03/24 05:24
Laboratory Results
Magnesium 2.2 mg/dl (1.6-2.3) 02/02/24 08:09
Total Bilirubin 0.4 mg/dl (0.2-1.3) 02/03/24 05:24
AST 113 U/L (14-36) H 02/03/24 05:24
ALT 83 U/L (0-35) H 02/03/24 05:24
Alkaline Phosphatase 75 U/L (38-126) 02/03/24 05:24
Lipase 1574 U/L (23-300) H* 02/03/24 05:24
Vital Signs and I&O:
Vital Signs
Temp Pulse Resp BP Pulse Ox
98.0 F 90 18 159/94 99
02/03/24 07:00 02/03/24 07:00 02/03/24 07:00 02/03/24 07:00 02/03/24 08:15
I&O
02/02/24 02/03/24 02/04/24
06:59 06:59 06:59
Intake Total 1040 / 1040 2229 / 2229
Balance 1040 / 1040 2229
Physical Exam
Physical Exam
HEENT: Anicteric and Moist mucous membranes
Cardiology: Normal Sinus Rhythm
Pulmonary: Clear
GI: Soft, Distended (minimal improved from yesterday ) and Non Tender
Extremities: No Edema
Neuro: Non Focal
--- NOTE | 2024-02-03 16:49 | W.DCSUMMARY ---
Discharge Summary
Discharge Data
Date of Admission: 02/02/24
Date of Discharge: 02/03/24
-
Pending Results: No
Hospital Course
58 yo female PMH breast Ca s/p bilateral mastectomies, bilateral breast implants, left breast implant rupture with recent replacement on 01/21/24, Sjogren's syndrome, Rheumatoid arthritis; p/w abdominal bloating and mid abd pain. She also had fever 2
days ago with migraine which has now resolved after taking a friend's Ubrelvy.
She was seen at the urgent care due to urinary frequency but denied to dysuria. She was given Cipro, took 1 dose and stopped after reading the possible side effect. Her urine culture came back negative.
Due to her recent breast implant surgery, she has had constipation which has gotten better. She had also been on Bactrim postop for prophylaxis.
Denies to other symptoms such as chest pain/shortness of breath etc.
CT AP:
1. Probable under distention of a short segment of terminal ileum, versus mild focal terminal ileitis.
2. Otherwise no significant acute abnormality identified in the abdomen or pelvis, as described above.
A/P:
Acute pancreatitis/constipation
Lipase is still elevated.
Constipation resolved.
Currently on clear liquid diet will advance as tolerated.
# breast Ca s/p bilateral mastectomies
# bilateral breast implants
# left breast implant rupture with recent replacement on 01/21/24
# Sjogren's syndrome
# Rheumatoid arthritis
DVT ppx: Lovenox SQ
Discharge Plan
-
Patient Disposition: Home (Routine Discharge)
Discharge Diagnosis/Procedures: Acute pancreatitis
Diet: Other diet
Additional Diets: gluten free diet
Blood Work: repeat lipase and LFT's with primary care in 1-2 weeks
Others Tests: return to ER for any recurrent bloating, pain, fever or problems
Referrals:
Eben Sr MD [Non-Admitting Privileges] - (follow up with noted elevated lipase and mild focal inflammation on CT)
Chau Hall DO [Family Provider] -
Prescriptions:
New
Probiotic Acidophilus 250 million cell capsule
500 mmu cells PO DAILY Qty: 30 0RF
Continued
acetaminophen [Tylenol] 325 mg Tablet
650 mg PO Q6HPRN PRN (Reason: mild pain)
alendronate [Fosamax] 70 mg Tablet
70 mg PO WINTER
calcium carbonate 500 mg calcium (1,250 mg) Tablet
500 mg PO DAILY
diazepam [Valium] 2 mg Tablet
2 mg PO DAILYPRN PRN (Reason: anxiety)
docusate sodium [Colace] 100 mg Capsule
100 mg PO BIDPRN PRN (Reason: constipation from surgery)
hydroxychloroquine [Plaquenil] 200 mg Tablet
200 mg PO WESA
zolpidem [Ambien] 10 mg Tablet
10 mg PO HSPRN PRN (Reason: sleep)
Discontinued
oxycodone 5 mg Tablet
5 mg PO BIDPRN PRN (Reason: severe pain)
Discharge Orders:
Discharge Patient (As Directed); Ordered 02/03/24
Ordered By: Lakisha Amaro
Discharge Date and Time
Print Language: LEBANESE
[2024-02-03] MEDS: LOVENOX SC (16:51)
[2024-02-04 14:13] LABS: C-Peptide 0.7 ng/mL (0.5-3.3)
== END 2024-02-03 18:33 | disposition home or self-care (01) | DRG 391 ==
LOC: 4 WEST ACU 08:22
PROVIDERS: Emergency Medicine; Internal Medicine; ADMITTING PHYSICIAN Internal Medicine; ATTENDING PHYSICIAN General Practice; CONSULT PHYSICIAN Internal Medicine Gastroenterology; EMERGENCY PHYSICIAN Emergency Medicine; FAMILY PHYSICIAN Family Medicine
DX: K59.03 Drug induced constipation (principal); K85.90 Acute pancreatitis without necrosis or infection, unspecified; M06.9 Rheumatoid arthritis, unspecified; M35.00 Sjogren syndrome, unspecified; R33.9 Retention of urine, unspecified; E16.2 Hypoglycemia, unspecified; N32.89 Other specified disorders of bladder; T40.605A Adverse effect of unspecified narcotics, initial encounter; Z79.83 Long term (current) use of bisphosphonates; Z79.899 Other long term (current) drug therapy; Z85.3 Personal history of malignant neoplasm of breast; Z98.82 Breast implant status
CPT/HCPCS: 74177; 80053; 81003; 81015; 82962; 83605; 83690; 83735; 84681; 85025; 85027; 87040; Q9967